=== PATIENT | female | born 1985 | race Caucasian/White ===

== ENCOUNTER 2022-02-06 14:09 | Emergency (ER) | payer SELFPAY ==
[~2022-02-06] VITALS: Ht 162.6 cm; Wt 84.8 kg
[2022-02-06 14:10] VITALS: BP 132/87
--- NOTE | 2022-02-06 14:11 | NUR ---
BIBA TO BED 8
[2022-02-06] MEDS ORDERED: NACL 0.9% 1,000 ML IV ONE (14:35)
--- NOTE | 2022-02-06 14:41 | NUR ---
MD BORREGO AT BEDSIDE FOR EVALUATION
--- NOTE | 2022-02-06 14:45 | NUR ---
36YO FEMALE PT BIBA HOME DUE TO FALL. PER FACILITY, 911 WAS CALLED BY SISTER WHO EXPRESSED CONCERN AFTER PT HAD FALL DUE TO ALCOHOL INTOXICATION. SISTER REPORTS PT FELL BACKWARDS ONTO WALL +HEADINJURY -LOC -BLOOD THINNERS. AT ARRIVAL PT W/ MILD SLURRED SPEECH. STATES RECENT INCREASE IN ALCOHOL INTAKE DUE TO FAM ISSUES. HEAD AND BACK W/O VISIBLE INJURY. DENIES SI, CHEST PAIN, N/V/D, SOB, FEVER OR CHILLS. PT AAOX4, SKIN FLUSHED. 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 HX:DIABETES, PSORIASIS NKA
--- NOTE | 2022-02-06 14:45 | NUR ---
LAB AT BEDSIDE
--- NOTE | 2022-02-06 14:45 | NUR ---
Note undone in EDM - 02/06/22 at 1652 by PHSEP 36YO FEMALE PT BIBA HOME DUE TO FALL. PER FACILITY, 911 WAS CALLED BY SISTER WHO EXPRESSED CONCERN AFTER PT HAD FALL DUE TO ALCOHOL INTOXICATION. SISTER REPORTS PT FELL BACKWARDS ONTO WALL +HEADINJURY -LOC -BLOOD THINNERS. AT ARRIVAL PT W/ MILD SLURRED SPEECH. STATES RECENT INCREASE IN ALCOHOL INTAKE DUE TO FAM ISSUES. HEAD AND BACK W/O VISIBLE INJURY. DENIES SI, CHEST PAIN, N/V/D, SOB, FEVER OR CHILLS. PT AAOX4, SKIN FLUSHED. 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 HX:DIABETES, CIRRHOSIS NKA
--- NOTE | 2022-02-06 15:12 | NUR ---
PT TAKEN TO CT VIA ANGELIQUE
--- NOTE | 2022-02-06 15:25 | NUR ---
PT BROUGHT BACK FROM CT VIA ANGELIQUE
[2022-02-06 15:44] LABS: EOSINOPHILS # (AUTO) 0.1 K/uL (0-0.4); EOSINOPHILS % (AUTO) 1.9 % (0.0-4.0); HEMATOCRIT 26.7 % (36-48); HEMOGLOBIN 8.7 g/dL (12.0-16.0); LYMPHOCYTES # (AUTO) 1.2 K/uL (2.5-16.5); LYMPHOCYTES % (AUTO) 32.4 % (20.5-51.1); MEAN CORPUSCULAR HEMOGLOBIN 26 pg (27-31); MEAN CORPUSCULAR HGB CONC 33 g/dL (33-37); MEAN CORPUSCULAR VOLUME 80.4 fL (80-94); MONOCYTES # (AUTO) 0.2 K/uL (0.8-1.0); MONOCYTES % (AUTO) 5.7 % (1.7-9.3); NEUTROPHILS # (AUTO) 2.1 K/uL (1.8-7.7); PLATELET COUNT (AUTO) 58 K/uL (140-450); RED BLOOD CELL COUNT(AUTO) 3.32 MIL/uL (4.20-5.40); RED CELL DISTRIBUTION WIDTH 17.4 % (11.6-13.7); WHITE BLOOD COUNT (AUTO) 3.6 K/uL (4.8-10.8)
[2022-02-06 16:02] LABS: ALBUMIN 2.6 g/dL (3.4-5.0); ANION GAP 13.4 (8-16); CARBON DIOXIDE 28.1 mmol/L (21-32); CREATININE 0.7 mg/dL (0.6-1.3); POTASSIUM 3.5 mmol/L (3.5-5.1); TOTAL BILIRUBIN 4.1 mg/dL (0.0-1.0)
--- NOTE | 2022-02-06 18:10 | NUR ---
IV removed, catheter intact and site benign. Applied folded 4x4 gauze and tape to stop bleeding.
[2022-02-06 18:13] VITALS: BP 125/79
--- NOTE | 2022-02-06 18:13 | NUR ---
Patient discharged with v/s stable. Written and verbal after care instructions FOR ALCOHOL INTOXICATION given and explained. Patient verbalized understanding. Ambulatory with steady gait. All questions addressed prior to discharge. Advised to follow up with PMD.
--- NOTE | 2022-02-06 18:24 | NUR ---
The patient's care was reviewed and supervised by [facility], RN.
== END 2022-02-06 18:13 | disposition home or self-care (01) ==
LOC: MED 14:09
DX: F10.19 Alcohol abuse with unspecified alcohol-induced disorder (principal); E11.9 Type 2 diabetes mellitus without complications; Z79.4 Long term (current) use of insulin; Z79.899 Other long term (current) drug therapy; Y90.9 Presence of alcohol in blood, level not specified
CPT/HCPCS: 36415; 70450; 80053; 81025; 85025; 96360; 99285; G0482; J7030

== ENCOUNTER 2022-03-22 10:41 | Emergency (ER) | payer OTHER ==
[~2022-03-22] VITALS: Ht 162.6 cm; Wt 102.5 kg
[2022-03-22 10:42] VITALS: BP 152/83
--- NOTE | 2022-03-22 10:58 | NUR ---
36F presents to ED with c/o abd distention/pain and constipation x1 month. Pt reports a constant, aching like, 10/10 pain to LUQ radiating to RUQ of the ABD. Pt reports last BM was 2 days ago, usually has a BM daily. Pt reports taking laxatives with no relief. Upon assessment, ABD distention noted, bowel sounds noted in all 4 quadrants, eyes appear slightly yellow in color. Pt changed into gown, bed at lowest position, side rails x1.
--- NOTE | 2022-03-22 11:02 | NUR ---
Dr Field at bedside evaluating pt.
[2022-03-22 11:33] LABS: BASOPHILS % (AUTO) 1.3 % (0.0-2.0); EOSINOPHILS # (AUTO) 0.1 K/uL (0-0.4); EOSINOPHILS % (AUTO) 3.4 % (0.0-4.0); HEMOGLOBIN 9.1 g/dL (12.0-16.0); LYMPHOCYTES # (AUTO) 1.1 K/uL (2.5-16.5); LYMPHOCYTES % (AUTO) 27.4 % (20.5-51.1); MEAN CORPUSCULAR HEMOGLOBIN 28 pg (27-31); MEAN CORPUSCULAR HGB CONC 33 g/dL (33-37); MEAN CORPUSCULAR VOLUME 86.2 fL (80-94); MONOCYTES # (AUTO) 0.3 K/uL (0.8-1.0); MONOCYTES % (AUTO) 8.6 % (1.7-9.3); NEUTROPHILS # (AUTO) 2.3 K/uL (1.8-7.7); NEUTROPHILS % (AUTO) 59.3 % (42.2-75.2); PLATELET COUNT (AUTO) 115 K/uL (140-450); RED BLOOD CELL COUNT(AUTO) 3.25 MIL/uL (4.20-5.40); RED CELL DISTRIBUTION WIDTH 19.4 % (11.6-13.7); WHITE BLOOD COUNT (AUTO) 3.8 K/uL (4.8-10.8)
[2022-03-22 11:35] LABS: APPEARANCE,URINE CLOUDY (CLEAR); BILIRUBIN,URINE 3+ (NEGATIVE); BLOOD, URINE NEGATIVE (NEGATIVE); LEUKOCYTE ESTERASE ,URINE TRACE (NEGATIVE); NITRITE, URINE POSITIVE (NEGATIVE); PH,URINE 5.5 (5.0-9.0); UGLUCOSE TRACE (NEGATIVE)
[2022-03-22 11:39] LABS: COLOR,URINE ORANGE (YELLOW)
[2022-03-22 11:44] LABS: RBC,URINE 0-5 /HPF (0-5); WBC,URINE 0-5 /HPF (0-5)
[2022-03-22 11:47] LABS: ALBUMIN 2.8 g/dL (3.4-5.0); CARBON DIOXIDE 26.2 mmol/L (21-32); CREATININE 0.8 mg/dL (0.6-1.3)
[2022-03-22 11:56] LABS: ANION GAP 12.1 (8-16); POTASSIUM 3.3 mmol/L (3.5-5.1)
[2022-03-22 13:00] VITALS: BP 156/87
--- NOTE | 2022-03-22 13:07 | NUR ---
Patient discharged with v/s stable. Written and verbal after care instructions about ascites, alcohol liver disease and cholelithiasis given and explained. Patient verbalized understanding. Ambulatory with steady gait. All questions addressed prior to discharge. Advised to follow up with PMD.
[2022-03-22 13:52] LABS: PROTHROMBIN TIME 20.6 secs (10.8-13.4)
== END 2022-03-22 13:07 | disposition home or self-care (01) ==
LOC: MED 10:41
DX: K70.31 Alcoholic cirrhosis of liver with ascites (principal); R16.2 Hepatomegaly with splenomegaly, not elsewhere classified; K80.20 Calculus of gallbladder without cholecystitis without obstruction; E83.51 Hypocalcemia; D61.818 Other pancytopenia; L40.9 Psoriasis, unspecified; E11.9 Type 2 diabetes mellitus without complications; Z98.890 Other specified postprocedural states
CPT/HCPCS: 36415; 80053; 81001; 81025; 83690; 85025; 85610; 85730; 99284

== ENCOUNTER 2022-04-09 12:37 | Emergency (ER) | payer OTHER ==
[~2022-04-09] VITALS: Ht 162.6 cm; Wt 106.6 kg
[2022-04-09 12:49] VITALS: BP 137/86
[2022-04-09 14:05] LABS: BASOPHILS % (AUTO) 1.1 % (0.0-2.0); EOSINOPHILS # (AUTO) 0.1 K/uL (0-0.4); EOSINOPHILS % (AUTO) 3.8 % (0.0-4.0); HEMOGLOBIN 8.5 g/dL (12.0-16.0); LYMPHOCYTES % (AUTO) 30.8 % (20.5-51.1); MEAN CORPUSCULAR HEMOGLOBIN 28 pg (27-31); MEAN CORPUSCULAR HGB CONC 33 g/dL (33-37); MEAN CORPUSCULAR VOLUME 85.1 fL (80-94); MONOCYTES # (AUTO) 0.3 K/uL (0.8-1.0); MONOCYTES % (AUTO) 10.5 % (1.7-9.3); NEUTROPHILS # (AUTO) 1.8 K/uL (1.8-7.7); NEUTROPHILS % (AUTO) 53.8 % (42.2-75.2); PLATELET COUNT (AUTO) 115 K/uL (140-450); RED BLOOD CELL COUNT(AUTO) 3.06 MIL/uL (4.20-5.40); WHITE BLOOD COUNT (AUTO) 3.3 K/uL (4.8-10.8)
[2022-04-09 14:07] LABS: APPEARANCE,URINE CLOUDY (CLEAR); BILIRUBIN,URINE MODERATE (NEGATIVE); BLOOD, URINE NEGATIVE (NEGATIVE); COLOR,URINE ORANGE (YELLOW); LEUKOCYTE ESTERASE ,URINE TRACE (NEGATIVE); NITRITE, URINE POSITIVE (NEGATIVE); PH,URINE 5.5 (5.0-9.0); UGLUCOSE 1+ (NEGATIVE)
--- NOTE | 2022-04-09 14:11 | NUR ---
Dr. Cuevas evaluating patient at bedside.
[2022-04-09 14:32] LABS: RBC,URINE 0-5 /HPF (0-5); WBC,URINE 0-5 /HPF (0-5)
--- NOTE | 2022-04-09 14:47 | NUR ---
36 y/o female bib self with c/o abdominal distention and bilateral feet swelling x 1.5 months. Per patient, has a GI appointment on 04/27/22. Patient reports increase in swelling and distention. Denies any SOB, fever or chills. Medical History: Liver Disease, DM NKDA
[2022-04-09 14:48] LABS: ALBUMIN 2.6 g/dL (3.4-5.0); ANION GAP 9.6 (8-16); CREATININE 0.8 mg/dL (0.6-1.3); POTASSIUM 3.6 mmol/L (3.5-5.1); TOTAL BILIRUBIN 6.9 mg/dL (0.0-1.0)
[2022-04-09] MEDS ORDERED: SPIR50TA PO (16:31)
[2022-04-09] MEDS ORDERED: FURO-570 PO (16:31)
[2022-04-09 16:49] VITALS: BP 114/71
--- NOTE | 2022-04-09 16:49 | NUR ---
Patient discharged with v/s stable. Written and verbal after care instructions given. Patient alert, oriented and verbalized understanding of instructions. Ambulatory with steady gait. All questions addressed prior to discharge. ID band removed. Patient advised to follow up with PMD. Rx of Aldactone and Lasix given. Opportunity to ask questions provided and answered. WORK NOTE HANDED TO PATIENT
--- NOTE | 2022-04-09 16:50 | NUR ---
The patient's care was reviewed and supervised by Edith Sanchez, RN, RN.
[2022-04-09 17:37] LABS: APPEARANCE,SPUN,BODY FLUID CLEAR (CLEAR); APPEARANCE,UNSPUN,BODY FLUID CLEAR (CLEAR); COLOR,BODY FLUID YELLOW (LT YELLOW); RBC, BODY FLUID 1 /cu. mm.; SPECIMENTYPE,BODY FLUID ASCITES; TOTAL VOLUME,BODY FLUID 1150 mL; WBC, BODY FLUID 100 /cu. mm.
[2022-04-09 20:09] LABS: POLYNUCLEAR, BODY FLUID 8 %
[2022-04-09 23:52] LABS: GLUCOSE,BODY FLUID 164 mg/dL
== END 2022-04-09 16:49 | disposition home or self-care (01) ==
LOC: MED 12:37
DX: K74.60 Unspecified cirrhosis of liver (principal); R18.8 Other ascites; R06.02 Shortness of breath; E11.9 Type 2 diabetes mellitus without complications; Z79.4 Long term (current) use of insulin; Z79.899 Other long term (current) drug therapy
CPT/HCPCS: 36415; 49083; 80053; 81001; 81025; 82945; 83690; 83880; 84157; 85025; 87086; 89051; 99285

== ENCOUNTER 2022-04-14 12:03 | Emergency (ER) | payer OTHER ==
[~2022-04-14] VITALS: Ht 162.6 cm; Wt 106.3 kg
[~2022-04-14 12:03] MED LIST: FURO-570 PO; SPIR50TA PO
[2022-04-14 12:17] VITALS: BP 115/66
--- NOTE | 2022-04-14 12:24 | NUR ---
PT AMB TO BED 12.
[2022-04-14] MEDS ORDERED: KETOROLAC 30 MG/ML VIAL IM ONE (12:45)
[2022-04-14 13:46] LABS: APPEARANCE,URINE CLEAR (CLEAR); BILIRUBIN,URINE 3+ (NEGATIVE); BLOOD, URINE NEGATIVE (NEGATIVE); LEUKOCYTE ESTERASE ,URINE TRACE (NEGATIVE); NITRITE, URINE POSITIVE (NEGATIVE); UGLUCOSE TRACE (NEGATIVE)
[2022-04-14 14:07] LABS: COLOR,URINE ORANGE (YELLOW)
[2022-04-14 14:28] LABS: RBC,URINE 0-5 /HPF (0-5); WBC,URINE 0-5 /HPF (0-5)
[2022-04-14 14:29] LABS: TRICHOMONAS,URINE None Seen /HPF (None Seen); YEAST,URINE None Seen /HPF (None Seen)
[2022-04-14 14:38] LABS: BASOPHILS % (AUTO) 0.6 % (0.0-2.0); EOSINOPHILS # (AUTO) 0.1 K/uL (0-0.4); EOSINOPHILS % (AUTO) 1.5 % (0.0-4.0); HEMATOCRIT 24.9 % (36-48); HEMOGLOBIN 8.2 g/dL (12.0-16.0); LYMPHOCYTES % (AUTO) 15.8 % (20.5-51.1); MEAN CORPUSCULAR HEMOGLOBIN 28 pg (27-31); MEAN CORPUSCULAR HGB CONC 33 g/dL (33-37); MONOCYTES # (AUTO) 0.7 K/uL (0.8-1.0); MONOCYTES % (AUTO) 11.1 % (1.7-9.3); NEUTROPHILS # (AUTO) 4.6 K/uL (1.8-7.7); PLATELET COUNT (AUTO) 96 K/uL (140-450); RED BLOOD CELL COUNT(AUTO) 2.93 MIL/uL (4.20-5.40); RED CELL DISTRIBUTION WIDTH 17.4 % (11.6-13.7); WHITE BLOOD COUNT (AUTO) 6.5 K/uL (4.8-10.8)
[2022-04-14] MEDS ORDERED: AMOX1TAB8 PO ×2 (14:52→16:38)
[2022-04-14] MEDS ORDERED: MAG355OR2 PO ×2 (14:52→16:38)
[2022-04-14] MEDS ORDERED: PREN-543 PO ×2 (14:52→16:38)
[2022-04-14] MEDS ORDERED: ONDA-188 PO ×2 (14:54→16:38)
[2022-04-14 14:57] LABS: ALBUMIN 2.4 g/dL (3.4-5.0); ANION GAP 9.4 (8-16); CARBON DIOXIDE 26.4 mmol/L (21-32); CREATININE 0.8 mg/dL (0.6-1.3); POTASSIUM 3.8 mmol/L (3.5-5.1); TOTAL BILIRUBIN 8.1 mg/dL (0.0-1.0)
--- NOTE | 2022-04-14 15:00 | NUR ---
pt sleeping, no ac distress, abd pain 04/06, no n/v, o2 sat 99% ra, sr up times 2
[2022-04-14] MEDS ORDERED: cefTRIAXone 1,000 MG in LIDOCAINE MPF 1% 2.1 ML IM ONE (16:05)
[2022-04-14] MEDS ORDERED: cefTRIAXone 1,000 MG VIAL ONE (16:11)
[2022-04-14] MEDS ORDERED: LIDOCAINE MPF 1% 5 ML ONE (16:11)
[2022-04-14 16:38] VITALS: BP 104/49
--- NOTE | 2022-04-14 16:42 | NUR ---
Patient discharged with v/s stable. Written and verbal after care instructions given and explained. Patient verbalized understanding. Ambulatory with steady gait. All questions addressed prior to discharge. Advised to follow up with PMD. has jake w recyclable products sorter this coming week.
== END 2022-04-14 16:38 | disposition home or self-care (01) ==
LOC: MED 12:03
DX: N39.0 Urinary tract infection, site not specified (principal); R18.8 Other ascites; D64.9 Anemia, unspecified; K74.60 Unspecified cirrhosis of liver; R21 Rash and other nonspecific skin eruption; E11.9 Type 2 diabetes mellitus without complications; Z98.890 Other specified postprocedural states; Z79.899 Other long term (current) drug therapy; Z79.2 Long term (current) use of antibiotics
CPT/HCPCS: 36415; 74021; 80053; 81001; 81025; 83605; 83690; 85025; 87086; 96372; 99284; J0696; J1885; J2001

== ENCOUNTER 2022-05-10 13:29 | Emergency (ER) | payer OTHER ==
[~2022-05-10] VITALS: Ht 162.6 cm; Wt 106.6 kg
[~2022-05-10 13:29] MED LIST changes: +AMOX1TAB8 PO; +MAG355OR2 PO; +ONDA-188 PO; +PREN-543 PO
[2022-05-10 13:34] VITALS: BP 143/87
[2022-05-10 14:01] LABS: BASOPHILS % (AUTO) 0.8 % (0.0-2.0); EOSINOPHILS % (AUTO) 0.9 % (0.0-4.0); HEMATOCRIT 28.1 % (36-48); HEMOGLOBIN 9.2 g/dL (12.0-16.0); LYMPHOCYTES # (AUTO) 0.8 K/uL (2.5-16.5); LYMPHOCYTES % (AUTO) 26.8 % (20.5-51.1); MEAN CORPUSCULAR HEMOGLOBIN 28 pg (27-31); MEAN CORPUSCULAR HGB CONC 33 g/dL (33-37); MEAN CORPUSCULAR VOLUME 85.7 fL (80-94); MONOCYTES # (AUTO) 0.3 K/uL (0.8-1.0); MONOCYTES % (AUTO) 10.4 % (1.7-9.3); NEUTROPHILS # (AUTO) 1.9 K/uL (1.8-7.7); NEUTROPHILS % (AUTO) 61.1 % (42.2-75.2); PLATELET COUNT (AUTO) 107 K/uL (140-450); RED BLOOD CELL COUNT(AUTO) 3.28 MIL/uL (4.20-5.40); RED CELL DISTRIBUTION WIDTH 17.6 % (11.6-13.7)
[2022-05-10 14:19] LABS: ALBUMIN 2.9 g/dL (3.4-5.0); CARBON DIOXIDE 30.4 mmol/L (21-32); POTASSIUM 3.4 mmol/L (3.5-5.1); TOTAL BILIRUBIN 11.8 mg/dL (0.0-1.0)
[2022-05-10] MEDS ORDERED: FAMO-90 PO (14:20)
--- NOTE | 2022-05-10 15:05 | NUR ---
Patient discharged with v/s stable. Written and verbal after care instructions FOR ASCITES AND GASTRITIS given and explained. Patient alert, oriented and verbalized understanding of instructions. Ambulatory with steady gait. All questions addressed prior to discharge. ID band removed. Patient advised to follow up with PMD. Rx of PEPCID given. Opportunity to ask questions provided and answered.
[2022-05-10 15:09] LABS: BILIRUBIN,URINE 3+ (NEGATIVE); BLOOD, URINE TRACE-L (NEGATIVE); LEUKOCYTE ESTERASE ,URINE 1+ (NEGATIVE); NITRITE, URINE POSITIVE (NEGATIVE); UGLUCOSE TRACE (NEGATIVE)
[2022-05-10 15:15] LABS: APPEARANCE,URINE HAZY (CLEAR); COLOR,URINE AMBER (YELLOW)
[2022-05-10 15:35] LABS: RBC,URINE 0-5 /HPF (0-5); WBC,URINE 0-5 /HPF (0-5)
== END 2022-05-10 15:05 | disposition home or self-care (01) ==
LOC: MED 13:29
DX: K29.70 Gastritis, unspecified, without bleeding (principal); K70.31 Alcoholic cirrhosis of liver with ascites; E11.9 Type 2 diabetes mellitus without complications; Z79.899 Other long term (current) drug therapy; Z79.2 Long term (current) use of antibiotics
CPT/HCPCS: 36415; 80053; 81001; 81025; 83690; 85025; 87086; 99283

== ENCOUNTER 2022-06-24 23:21 | Inpatient (IN) | payer OTHER ==
[~2022-06-24] VITALS: Ht 162.6 cm; Wt 94.8 kg
[~2022-06-24 23:21] MED LIST changes: +FAMO-90 PO
--- NOTE | 2022-06-24 23:22 | NUR ---
Dr. Yarbrough examining patient.
[2022-06-24 23:26] VITALS: BP 120/75
[2022-06-25 00:24] LABS: BASOPHILS % (AUTO) 1.2 % (0.0-2.0); EOSINOPHILS % (AUTO) 0.7 % (0.0-4.0); HEMATOCRIT 26.4 % (36-48); HEMOGLOBIN 9.1 g/dL (12.0-16.0); LYMPHOCYTES # (AUTO) 1.1 K/uL (2.5-16.5); LYMPHOCYTES % (AUTO) 27.2 % (20.5-51.1); MEAN CORPUSCULAR HEMOGLOBIN 31 pg (27-31); MEAN CORPUSCULAR HGB CONC 34 g/dL (33-37); MEAN CORPUSCULAR VOLUME 90.8 fL (80-94); MONOCYTES # (AUTO) 0.5 K/uL (0.8-1.0); MONOCYTES % (AUTO) 11.7 % (1.7-9.3); NEUTROPHILS # (AUTO) 2.4 K/uL (1.8-7.7); NEUTROPHILS % (AUTO) 59.2 % (42.2-75.2); RED CELL DISTRIBUTION WIDTH 20.6 % (11.6-13.7); WHITE BLOOD COUNT (AUTO) 4.1 K/uL (4.8-10.8)
[2022-06-25 00:30] LABS: ACETONE, SERUM NEGATIVE (NEGATIVE)
[2022-06-25 00:50] LABS: ALBUMIN 2.1 g/dL (3.4-5.0); ANION GAP 13.8 (8-16); ASPARTATE AMINOTRANSFERASE 175 U/L (15-37); CHLORIDE 101 mmol/L (98-107); CREATININE 0.9 mg/dL (0.6-1.3); GFR ARICAN-AMERICAN 91 mL/min (>90); GLUCOSE 177 mg/dL (74-106); LIPASE 400 U/L (73-393); POTASSIUM 3.8 mmol/L (3.5-5.1); SODIUM SERUM 138 mmol/L (136-145); TOTAL BILIRUBIN 12.4 mg/dL (0.0-1.0); UREA NITROGEN, BLOOD 6 mg/dL (7-18)
[2022-06-25 00:57] LABS: PLATELET COUNT (AUTO) 64 K/uL (140-450)
[2022-06-25 00:58] LABS: BASOPHILS # (AUTO) 0.1 K/uL (0.00-0.22)
--- NOTE | 2022-06-25 02:30 | NUR ---
Nurse get the urine from in and out catheter. pt toreated well
[2022-06-25 02:46] LABS: APPEARANCE,URINE CLOUDY (CLEAR); BILIRUBIN,URINE 3+ (NEGATIVE); BLOOD, URINE NEGATIVE (NEGATIVE); COLOR,URINE BROWN (YELLOW); LEUKOCYTE ESTERASE ,URINE TRACE (NEGATIVE); NITRITE, URINE POSITIVE (NEGATIVE); PH,URINE 5.5 (5.0-9.0); UGLUCOSE TRACE (NEGATIVE)
[2022-06-25 03:02] LABS: RBC,URINE 0-5 /HPF (0-5); WBC,URINE 0-5 /HPF (0-5)
[2022-06-25] MEDS ORDERED: cefTRIAXone 1,000 MG VIAL ONE (03:19)
--- NOTE | 2022-06-25 03:31 | NUR ---
BOB COLLECTED AND GIVEN TO RACH
[2022-06-25] MEDS ORDERED: KCL 20 MEQ IN 100 mL PREMIX 200 ML IV PRN (05:05)
[2022-06-25] MEDS ORDERED: HYDROcodone/APAP 5/325 MG 1 TAB TAB PO PRN (05:05)
[2022-06-25] MEDS ORDERED: ONDANSETRON 4 MG/2 ML VIAL IVP PRN (05:05)
[2022-06-25] MEDS ORDERED: POTASSIUM CHLORIDE 10 MEQ TABER PO PRN (05:05)
[2022-06-25] MEDS ORDERED: MAGNESIUM OXIDE 400 MG TAB PO PRN (05:05)
[2022-06-25] MEDS ORDERED: MAG SULF 2000 MG/WATER PREMIX 50 ML IV PRN (05:05)
[2022-06-25] MEDS ORDERED: ACETAMINOPHEN 325 MG TAB PO PRN (05:05)
[2022-06-25] MEDS ORDERED: LORazepam 1 MG TAB PO PRN (05:05)
[2022-06-25] MEDS ORDERED: LORazepam 2 MG/ML VIAL IVP ONE (06:40)
--- NOTE | 2022-06-25 06:56 | NUR ---
dr delgado called back. nurse reported that pt has tachycardia epsiode 127 to 130 for 15 munites.He ordered ekg and morpine prn 2mg q 6hrs.
--- NOTE | 2022-06-25 08:48 | NUR ---
Patient will be admitted to care of DR. HARMON. Admited to TELE . Will go to room 119B. Belongings list completed. Report to JOSY DOMINGUEZ.
[2022-06-25] MEDS ORDERED: LACTULOSE 20 GM/30 ML UDC PO SCH (09:00)
--- NOTE | 2022-06-25 09:05 | NUR ---
PATIENT HAS BEEN SCREENED AND CATEGORIZED LOW NUTRITION RISK. PATIENT WILL BE SEEN WITHIN 7 DAYS OF ADMISSION. 06/25/22-07/02/22 REVIEWED BY ALE[address] MCGEE RD Addendum: 06/25/22 at [address] PT HAS BEEN RE-SCREENED MODERATE NUTRITION RISK. PT WILL BE SEEN WITHIN 3-5 DAYS OF ADMISSION.
[2022-06-25 09:58] VITALS: BP 109/61
[2022-06-25] MEDS: NACL 0.9% 1,000 ML IV SCH (15:03)
[2022-06-25 16:00] VITALS: BP 128/69
[2022-06-25] MEDS: MORPHINE SULFATE 2 MG/ML SYR IVP PRN (16:51)
--- NOTE | 2022-06-25 17:18 | NUR ---
OUTCOME SUMMARY pt admitted from ED for AMS. Pt drowsy but arousable to name. Intermittent moaning but unable to verbalize needs. Morphine x1 for pain relief. vss. afebrile. RA. NPO. Voiding. IVFs initiated. All needs met, safety and comfort measures maintained, call light within reach.
--- NOTE | 2022-06-25 19:30 | NUR ---
RECEIVED PATIENT FROM AM NURSE FOR CONTINUITY OF CARE. PT IS STABLE
[2022-06-25 20:00] VITALS: BP 148/56
[2022-06-25] MEDS: LACTULOSE 20 GM/30 ML UDC PO SCH (20:29)
[2022-06-25] MEDS: RIFAXIMIN 550 MG TAB PO SCH (20:29)
[2022-06-26] VITALS: BP 138/71
[2022-06-26] MEDS: MORPHINE SULFATE 2 MG/ML SYR IVP PRN (01:38)
[2022-06-26 04:00] VITALS: BP 136/74
[2022-06-26] MEDS: NACL 0.9% 1,000 ML IV SCH ×2 (04:55→14:55)
[2022-06-26 06:25] LABS: BASOPHILS % (AUTO) 0.7 % (0.0-2.0); EOSINOPHILS % (AUTO) 0.9 % (0.0-4.0); HEMATOCRIT 21.8 % (36-48); HEMOGLOBIN 7.4 g/dL (12.0-16.0); LYMPHOCYTES # (AUTO) 1.1 K/uL (2.5-16.5); LYMPHOCYTES % (AUTO) 37.5 % (20.5-51.1); MEAN CORPUSCULAR HEMOGLOBIN 32 pg (27-31); MEAN CORPUSCULAR HGB CONC 34 g/dL (33-37); MEAN CORPUSCULAR VOLUME 93.3 fL (80-94); MONOCYTES # (AUTO) 0.4 K/uL (0.8-1.0); NEUTROPHILS # (AUTO) 1.5 K/uL (1.8-7.7); NEUTROPHILS % (AUTO) 48.9 % (42.2-75.2); PLATELET COUNT (AUTO) 33 K/uL (140-450); RED BLOOD CELL COUNT(AUTO) 2.33 MIL/uL (4.20-5.40); RED CELL DISTRIBUTION WIDTH 20.6 % (11.6-13.7)
[2022-06-26 06:50] LABS: WHITE BLOOD COUNT (AUTO) 3.1 K/uL (4.8-10.8)
[2022-06-26 06:56] LABS: ALBUMIN 1.6 g/dL (3.4-5.0); ANION GAP 13.6 (8-16); CREATININE 0.7 mg/dL (0.6-1.3); MAGNESIUM 1.4 mg/dL (1.8-2.4); PHOSPHORUS 3.4 mg/dL (2.5-4.9); POTASSIUM 3.6 mmol/L (3.5-5.1); TOTAL BILIRUBIN 11.4 mg/dL (0.0-1.0)
--- NOTE | 2022-06-26 06:56 | NUR ---
RECEIVED REPORT FROM LAB . PATIENT'S PLATELET COUNT IS 33. INFORMED , AWAITING RESPONSE
--- NOTE | 2022-06-26 07:38 | NUR ---
GOT REPORT FROM THE NIGHT NURSE, PT [id number]
[2022-06-26 08:00] VITALS: BP 134/89
[2022-06-26] MEDS ORDERED: LORazepam 2 MG/ML VIAL IVP PRN (08:20)
[2022-06-26] MEDS ORDERED: FUROSEMIDE 40 MG/4 ML VIAL IVP SCH (09:00)
[2022-06-26] MEDS: LACTULOSE 20 GM/30 ML UDC PO SCH ×2 (09:06→20:13)
[2022-06-26] MEDS: RIFAXIMIN 550 MG TAB PO SCH ×2 (09:07→20:14)
[2022-06-26] MEDS: FUROSEMIDE 40 MG/4 ML VIAL IVP SCH (09:36)
[2022-06-26 12:00] VITALS: BP 125/74
--- NOTE | 2022-06-26 12:34 | NUR ---
DC PLANNING ASSESSMENT COMPLETE PLEASE REFER TO ASSESSMENT FOR ADDITIONAL DETAILS PT REPORTS DC PLAN IS TO RETURN TO THE AREA IN WHICH SHE TYPICALLY STAYS. CHANELLE ENCOURAGED PT TO UTILIZE HOMELESS RESOURCES WELL WALK UP SHELTERS OFFERED BY CHANELLE. PT REPORTS SHE WILL " LOOK AT LATER" Addendum: 06/26/22 at 1235 by Aydin BUCKLEY Amended: Links added.
[2022-06-26 16:00] VITALS: BP 119/71
--- NOTE | 2022-06-26 19:35 | NUR ---
RECEIVD PATIENT FROM AM NURSE FOR CONTINUITY OF CARE. PT IS STABLE
[2022-06-26 20:00] VITALS: BP 130/72
--- NOTE | 2022-06-26 23:20 | NUR ---
MESSAGED MD REGARDING PATIENT'S PLATELET COUNT OF 33. MD SAID TO HOLD ANY BLOOD THINNERS AND MONITOR FOR BLEEDING
[2022-06-27] VITALS: BP 134/76
[2022-06-27] MEDS: NACL 0.9% 1,000 ML IV SCH ×3 (00:55→21:18)
[2022-06-27 04:00] VITALS: BP 139/70
[2022-06-27 05:29] LABS: BASOPHILS % (AUTO) 1.2 % (0.0-2.0); EOSINOPHILS # (AUTO) 0.1 K/uL (0-0.4); EOSINOPHILS % (AUTO) 1.6 % (0.0-4.0); HEMOGLOBIN 7.1 g/dL (12.0-16.0); LYMPHOCYTES # (AUTO) 1.1 K/uL (2.5-16.5); LYMPHOCYTES % (AUTO) 31.9 % (20.5-51.1); MEAN CORPUSCULAR HEMOGLOBIN 32 pg (27-31); MEAN CORPUSCULAR HGB CONC 34 g/dL (33-37); MEAN CORPUSCULAR VOLUME 93.4 fL (80-94); MONOCYTES # (AUTO) 0.4 K/uL (0.8-1.0); NEUTROPHILS # (AUTO) 1.9 K/uL (1.8-7.7); NEUTROPHILS % (AUTO) 54.3 % (42.2-75.2); PLATELET COUNT (AUTO) 39 K/uL (140-450); RED BLOOD CELL COUNT(AUTO) 2.25 MIL/uL (4.20-5.40); RED CELL DISTRIBUTION WIDTH 20.8 % (11.6-13.7); WHITE BLOOD COUNT (AUTO) 3.4 K/uL (4.8-10.8)
[2022-06-27 05:58] LABS: ALBUMIN 1.7 g/dL (3.4-5.0); ANION GAP 8.5 (8-16); CARBON DIOXIDE 28.7 mmol/L (21-32); CREATININE 0.7 mg/dL (0.6-1.3); MAGNESIUM 1.6 mg/dL (1.8-2.4); PHOSPHORUS 2.1 mg/dL (2.5-4.9); POTASSIUM 3.2 mmol/L (3.5-5.1); TOTAL BILIRUBIN 12.1 mg/dL (0.0-1.0)
[2022-06-27 08:00] VITALS: BP 118/80
[2022-06-27] MEDS: FUROSEMIDE 40 MG/4 ML VIAL IVP SCH (09:07)
[2022-06-27] MEDS: RIFAXIMIN 550 MG TAB PO SCH ×2 (09:11→21:21)
[2022-06-27] MEDS: LACTULOSE 20 GM/30 ML UDC PO SCH ×2 (09:13→21:21)
[2022-06-27 12:00] VITALS: BP 125/66
--- NOTE | 2022-06-27 13:52 | NUR ---
PT. WITH LOW WES SCALE AT MODERATE TO HIGH RISK, CONTINUE TO FOLLOW PRESSURE INJURY PREVENTION INTERVENTIONS. -POSITIONING: TURN AND REPOSITION PATIENT Q 2H OR SOONER USE PILLOWS TO KEEP BONY PROMINENCES FROM DIRECT CONTACT WITH SURFACES USE REPOSITIONING WEDGES TO PROVIDE 30-DEGREE ANGLE FOR SIDE LYING POSITIONS OFFLOADING OR FOAM DRESSING TO ALL TUBING TO PREVENT MEDICAL DEVICES RELATED PRESSURE INJURY -RE-EVALUATING AND MANAGING INCONTINENCE MONITOR SKIN CONDITION DURING POSITION CHANGE DO NOT MASSAGE REDNESS, BONY PROMINENCES FREQUENT GEOVANNY-CARE AND PROVIDE BARRIER CREAMS PRN IF SOILING MOISTURE CONTROL BY OFFER BED ROMERO/URINAL /ABSORBENT PAD TO WICK AND HOLD MOISTURE KEEP SKIN DRY AND PROTECT FROM FRICTION -MANAGE FRICTION/SHEAR/MOBILITY KEEP HOB AT THE LOWEST LEVEL OF ELEVATION NO MORE THAN 30 DEGREE UNLESS OTHERWISE CONTRAINDICATED USE LIFT SHEET OR TRANSFER DEVICE TO MOVE PATIENT AND PREVENT LATERAL SHEER. PROTECT HEELS, ELBOWS BONY PROMINENCES WITH SKIN BERRIES OR FOAM DRESSING IF EXPOSED TO FRICTION OFFLOAD BILATERAL HEELS BY PLACING PILLOWS UNDER CALVES AT ALL TIMES, UNLESS OTHERWISE CONTRAINDICATED -PRESSURE REDISTRIBUTION SURFACE THERAPY SHAILESH ISOFLEX MATTRESS -NUTRITION: PLEASE FOLLOW RD RECOMMENDATIONS AND OFFER NUTRITION SUPPLEMENTS IF ORDERED. PLEASE CONTACT WOUND CARE NURSE FOR ANY QUESTION AND CHANGE OF WOUND CONDITION
[2022-06-27 16:00] VITALS: BP 131/85
[2022-06-27 16:03] LABS: PROTHROMBIN TIME 31.9 secs (10.8-13.4)
--- NOTE | 2022-06-27 19:16 | NUR ---
ENDORSE PATIENT IN STABLE CONDITION TO PM SHIFT NURSE WHILE PATIENT IS REST IN BED, NS INFUSING AT 100ML/HR VIA R.WRIST PIV SITE.
--- NOTE | 2022-06-27 19:17 | NUR ---
RECEIVED PT FROM MORNING SHIFT NURSE. PT IS AOX4, AMBULATORY WITH ASSIST, ABLE TO VERBALIZE NEEDS AND ABLE TO FOLLOW COMMANDS. PT IS ON ROOM AIR AND ON REGULAR DIET. PT HAS IV ON RIGHT WRIST GAUGE 22 RUNNING WITH NS AT 100ML/HR. PT HAS SCABS ALL OVER THE BODY. NO COMPLAIN OF PAIN. NO S/S OF RESPIRATORY DISTRESS NOTED. ALL SAFETY MEASURES IMPLEMENTED. BED IN LOW POSITION, BED WHEELS ON LOCK AND CALL LIGHT WITHIN REACH.
[2022-06-27 20:00] VITALS: BP 132/80
--- NOTE | 2022-06-27 21:21 | NUR ---
ALL SCHEDULED AND PRESCRIBED MEDICATION WAS GIVEN TO PT PER MD ORDER. ALL SAFETY MEASURES IMPLEMENTED. BED IN LOW POSITION, BED WHEELS ON LOCK AND CALL LIGHT WITHIN REACH.
[2022-06-28] VITALS: BP 105/54
--- NOTE | 2022-06-28 | NUR ---
PT IS ON SLEEP. CHEST RISE AND FALL SYMMETRICALLY NOTED. RESPIRATION IS EVEN AND UNLABORED. ALL SAFETY MEASURES IMPLEMENTED. BED IN LOW POSITION, BED WHEELS ON LOCK AND CALL LIGHT WITHIN REACH.
--- NOTE | 2022-06-28 02:00 | NUR ---
CHECKED THE PT STILL ON SLEEP. CHEST RISE AND FALL SYMMETRICALLY NOTED. RESPIRATION IS EVEN AND UNLABORED. ALL SAFETY MEASURES IMPLEMENTED. BED IN LOW POSITION, BED WHEELS ON LOCK AND CALL LIGHT WITHIN REACH.
[2022-06-28 04:00] VITALS: BP 122/71
[2022-06-28 05:04] LABS: BASOPHILS % (AUTO) 1.3 % (0.0-2.0); EOSINOPHILS # (AUTO) 0.1 K/uL (0-0.4); EOSINOPHILS % (AUTO) 2.1 % (0.0-4.0); LYMPHOCYTES # (AUTO) 0.9 K/uL (2.5-16.5); LYMPHOCYTES % (AUTO) 30.7 % (20.5-51.1); MEAN CORPUSCULAR HEMOGLOBIN 32 pg (27-31); MEAN CORPUSCULAR HGB CONC 34 g/dL (33-37); MEAN CORPUSCULAR VOLUME 94.6 fL (80-94); MONOCYTES # (AUTO) 0.3 K/uL (0.8-1.0); MONOCYTES % (AUTO) 11.1 % (1.7-9.3); NEUTROPHILS # (AUTO) 1.5 K/uL (1.8-7.7); NEUTROPHILS % (AUTO) 54.8 % (42.2-75.2); PLATELET COUNT (AUTO) 34 K/uL (140-450); RED BLOOD CELL COUNT(AUTO) 2.09 MIL/uL (4.20-5.40); RED CELL DISTRIBUTION WIDTH 20.6 % (11.6-13.7); WHITE BLOOD COUNT (AUTO) 2.8 K/uL (4.8-10.8)
[2022-06-28 05:09] LABS: HEMATOCRIT 19.7 % (36-48); HEMOGLOBIN 6.7 g/dL (12.0-16.0)
--- NOTE | 2022-06-28 05:09 | NUR ---
RECEIVED CALL FROM LAB PT HAS CRITICAL LAB OF HEMOGLOBIN-6.7 AND HEMATOCRIT 19.7. DOCTOR IS NOTIFIED.
[2022-06-28 05:30] LABS: ALBUMIN 1.6 g/dL (3.4-5.0); CARBON DIOXIDE 29.5 mmol/L (21-32); CREATININE 0.8 mg/dL (0.6-1.3); MAGNESIUM 1.4 mg/dL (1.8-2.4); POTASSIUM 3.5 mmol/L (3.5-5.1); TOTAL BILIRUBIN 10.9 mg/dL (0.0-1.0)
[2022-06-28] MEDS: NACL 0.9% 1,000 ML IV SCH ×2 (06:57→15:00)
--- NOTE | 2022-06-28 07:13 | NUR ---
PT IS STABLE. ENDORSED PT TO MORNING NURSE FOR CONTINUITY OF CARE.
[2022-06-28 08:00] VITALS: BP 122/71
--- NOTE | 2022-06-28 08:00 | NUR ---
rECEIVED IN NO ACUTE DISTRESS. aBDOMEN DISTENDED. pATIENT FOR ABDOMINAL PARACENTESIS TODAY AND POSTPONED DUE TO inr OF 3.0. PROCEDURE WILL BE DONE WHEN inr IS 2.0.
[2022-06-28] MEDS: FUROSEMIDE 40 MG/4 ML VIAL IVP SCH (08:40)
[2022-06-28] MEDS: RIFAXIMIN 550 MG TAB PO SCH ×2 (09:00→20:13)
[2022-06-28] MEDS: LACTULOSE 20 GM/30 ML UDC PO SCH ×2 (09:00→20:13)
[2022-06-28 12:00] VITALS: BP 122/75
[2022-06-28 16:00] VITALS: BP 131/78
--- NOTE | 2022-06-28 16:11 | NUR ---
06/28/22 RD INITIAL ASSESSMENT COMPLETED PLEASE REFER TO NUTRITION ASSESSMENT UNDER CARE ACTIVITY FOR ESTIMATED NUTRITIONAL NEEDS. 1. RECOMMEND ADDING [id number] TO MECHANICAL SOFT DIET TOLERATED 2. MONITOR GI, PO INTAKE, NUTRITION RELATED LAB VALUES. 3. RD TO FOLLOW-UP 7 DAYS, LOW RISK REVIEWED BY ALEKSANDRA MCGEE RD
[2022-06-28] MEDS ORDERED: FURO-570 PO (16:25)
[2022-06-28] MEDS ORDERED: SPIR50TA PO (16:25)
[2022-06-28] MEDS ORDERED: LACT10SO11 PO (16:25)
--- NOTE | 2022-06-28 18:28 | NUR ---
pATIENT IS STARTED ON prbc 1 UNIT AT 1800. bp vSS. nOTRANSFUSION REACTION NOTED AT THIS TIME. bp vSS. pATIENT WILL BE DISCHARGED POST TRANSFUSION.
--- NOTE | 2022-06-28 19:45 | NUR ---
RECEIVED PT FROM MORNING SHIFT NURSE. PT IS AOX4, AMBULATORY WITH ASSIST, ABLE TO VERBALIZE NEEDS AND ABLE TO FOLLOW COMMANDS. PT IS ON ROOM AIR AND ON REGULAR DIET. PT HAS IV ON RIGHT WRIST GAUGE 22 RUNNING WITH BLOOD AT 100ML/HR. PT HAS SCABS ALL OVER THE BODY. NO COMPLAIN OF PAIN. NO S/S OF RESPIRATORY DISTRESS NOTED. ALL SAFETY MEASURES IMPLEMENTED. BED IN LOW POSITION, BED WHEELS ON LOCK AND CALL LIGHT WITHIN REACH.
[2022-06-28 20:00] VITALS: BP 130/83
--- NOTE | 2022-06-28 21:05 | NUR ---
DONE WITH BLOOD TRANSFUSION WITH POST TRANSFUSION VS OF BP-131/78, T-98.2, R-18. NO COMPLAIN OF PAIN. NO S/S OF RESPIRATORY DISTRESS NOTED. ALL SAFETY MEASURES IMPLEMENTED. BED IN LOW POSITION, BED WHEELS ON LOCK AND CALL LIGHT WITHIN REACH.
--- NOTE | 2022-06-28 21:35 | NUR ---
PT WAS LEFT THE HOSPITAL. BROUGHT THE PT TO HER SISTER'S ARRANGED LIFT CAR. ALL BELONGINGS WAS WITH THE PT AND THE POCKET WELL.
--- NOTE | 2022-06-29 12:39 | NUR ---
CALLED DR CHERRY D[facility]GL[facility]S OFFICE LOCATED AT [address] [place], [place] [id number]. SPOKE WITH HERNANDEZ WHO HELPED ME SETUP A FOLLOW UP APPOINTMENT FOR 07/02/2022 AT 0920. CALLED PATIENT WHO DIDNT ANSWER BUT MESSAGE WAS LEFT REGARDING THE ABOVE INFORMATION.
== END 2022-06-28 21:35 | disposition home or self-care (01) | DRG 280 ==
LOC: MED 23:21 → MTU 06-25 05:07
PROVIDERS: ADMIT Student in an Organized Health Care Education/Training Program; ATTEND Student in an Organized Health Care Education/Training Program
PROC: 30233N1 Transfusion of Nonautologous Red Blood Cells into Peripheral Vein, Percutaneous Approach (ICD-10-PCS; principal; 2022-06-28)
DX: K70.31 Alcoholic cirrhosis of liver with ascites (principal); G93.41 Metabolic encephalopathy; E43 Unspecified severe protein-calorie malnutrition; K85.90 Acute pancreatitis without necrosis or infection, unspecified; K76.82 Hepatic encephalopathy; R64 Cachexia; M62.82 Rhabdomyolysis; R65.10 Systemic inflammatory response syndrome (SIRS) of non-infectious origin without acute organ dysfunction; Y90.9 Presence of alcohol in blood, level not specified; F10.129 Alcohol abuse with intoxication, unspecified; Z20.822 Contact with and (suspected) exposure to COVID-19; E86.0 Dehydration; Z79.899 Other long term (current) drug therapy; Z68.35 Body mass index [BMI] 35.0-35.9, adult
CPT/HCPCS: 36415; 76700; 76705; 80053; 81001; 82009; 82140; 82550; 82553; 83690; 83735; 84100; 85025; 85610; 85730; 86886; 86900; 86901; 86920; 87081; 87086; 93005; 96365; 96375; 99285; G0482; J0696; J1940; J2060; J2270; J2405; J3475; J7060; P9016; Q0092